=== PATIENT | female | born 1990 | race Asian ===

== ENCOUNTER 2016-06-04 14:40 | Inpatient (IN) | payer MEDICAID ==
[~2016-06-04] VITALS: Ht 162.6 cm; Wt 93.2 kg
[2016-08-06] VITALS (30 sets, daily range): BP systolic 91–136; BP diastolic 50–91; PULSE 80–123; TEMP 97.1–98.4
[2016-08-06] MEDS ORDERED: PRENATAL (07:57)
[2016-08-06 08:40] LABS: BASO % 0.2 % (0.0-2.0); EOS # 0.1 (0.0-0.7); EOS % 1.2 % (0-4.0); GRAN # 6.8 (1.4-6.5); GRAN % 67.8 % (42.2-75.2); HEMATOCRIT 37.3 % (37.0-47.0); HEMOGLOBIN 12.4 g/dl (12.5-16.0); LYMPH # 2.4 (1.2-3.4); LYMPH % 23.7 % (20.0-51.0); MEAN CELL VOLUME 87 fl (80.0-100.0); MEAN CORPUSCULAR HEMOGLOBIN 29 pg (27.0-31.0); MEAN CORPUSCULAR HGB CONC 33 g/dl (33.0-37.0); MEAN PLATELET VOLUME 12.1 fl (7.4-10.4); MONO # 0.6 (0.1-0.6); MONO % 6.3 % (1.7-9.3); PLATELET COUNT 152 K/mm3 (130-400); RED BLOOD COUNT 4.28 M/mm3 (4.10-5.30)
[2016-08-07 00:30] VITALS: BP 130/79; PULSE 98; TEMP 98.3
[2016-08-07 04:30] VITALS: BP 121/79; PULSE 96; TEMP 97.6
[2016-08-07 08:20] VITALS: BP 126/76; PULSE 96; TEMP 97.8
[2016-08-07 16:33] VITALS: BP 141/88; PULSE 78; TEMP 98.2
[2016-08-07 23:05] VITALS: BP 127/82; PULSE 93; TEMP 98.3
[2016-08-08 08:18] VITALS: BP 112/91; PULSE 92; TEMP 98.2
[2016-08-08] MEDS ORDERED: IBU600 MG PO (09:08)
[2016-08-08] MEDS ORDERED: PERCOCET 325 MG1 TA2 PO (09:09)
[2016-08-08] MEDS ORDERED: BREASTPUMP MC ×2 (09:09→09:11)
[2016-10-04] MEDS ORDERED: ZITHROMAX500 M2 PO (00:03)
== END 2016-08-08 14:15 | disposition home or self-care (01) | DRG 775 ==
LOC: LDR 08-06 07:10 → OB 08-06 07:10 → LDR 08-06 14:36 → OB 08-06 15:10 → EDSTATUS 08-16 14:35 → LDRO 08-16 14:39
PROVIDERS: Obstetrics & Gynecology
PROC: 10E0XZZ Delivery of Products of Conception, External Approach (ICD-10-PCS; principal; 2016-08-06)
PROC: 3E033VJ Introduction of Other Hormone into Peripheral Vein, Percutaneous Approach (ICD-10-PCS; 2016-08-06)
PROC: 0HQ9XZZ Repair Perineum Skin, External Approach (ICD-10-PCS; 2016-08-06)
DX: O48.0 Post-term pregnancy (principal); O70.0 First degree perineal laceration during delivery; O69.81X0 Labor and delivery complicated by cord around neck, without compression, not applicable or unspecified; Z3A.40 40 weeks gestation of pregnancy; Z37.0 Single live birth
CPT/HCPCS: J2590; J7120

== ENCOUNTER 2016-10-03 19:09 | Emergency (ER) | payer MEDICAID ==
[~2016-10-03] VITALS: Ht 160 cm; Wt 77.3 kg
[~2016-10-03 19:09] MED LIST: BREASTPUMP MC; IBU600 MG PO; PERCOCET 325 MG1 TA2 PO; PRENATAL
[2016-10-03 19:11] VITALS: TEMP 97.9
[2016-10-03] MEDS ORDERED: CARAFATE 1GM1 G PO (19:15)
[2016-10-03] MEDS ORDERED: ZOLOFT 50MG50 MG PO ×2 (19:16→19:58)
[2016-10-03] MEDS ORDERED: BREASTPUMP MC (19:16)
[2016-10-03 19:47] LABS: BASO % 0.3 % (0.0-2.0); EOS # 0.1 (0.0-0.7); EOS % 1.9 % (0-4.0); GRAN # 4.4 (1.4-6.5); LYMPH # 1.8 (1.2-3.4); LYMPH % 26.9 % (20.0-51.0); MEAN CELL VOLUME 85 fl (80.0-100.0); MEAN CORPUSCULAR HGB CONC 33 g/dl (33.0-37.0); MEAN PLATELET VOLUME 10.8 fl (7.4-10.4); MONO # 0.4 (0.1-0.6); MONO % 5.6 % (1.7-9.3); PLATELET COUNT 244 K/mm3 (130-400); RED BLOOD COUNT 4.14 M/mm3 (4.10-5.30); WHITE BLOOD COUNT 6.8 K/mm3 (4.8-10.8)
[2016-10-03 19:48] LABS: HEMATOCRIT 35.2 % (37.0-47.0); HEMOGLOBIN 11.6 g/dl (12.5-16.0); MEAN CORPUSCULAR HEMOGLOBIN 28 pg (27.0-31.0)
[2016-10-03 20:02] LABS: PH 5 (5-8); URINE APPEARANCE Hazy; URINE BACTERIA None Seen /hpf; URINE BILIRUBIN Negative (NEGATIVE); URINE BLOOD Negative (NEGATIVE); URINE COLOR Yellow; URINE GLUCOSE Negative (NEGATIVE); URINE KETONE Negative (NEGATIVE); URINE RBC 0-2 /hpf; URINE UROBILINOGEN Negative (NEGATIVE)
[2016-10-03 20:05] LABS: ADJUSTED CALCIUM 9.5 mg/dL (8.4-10.2); ALBUMIN 4.5 gm/dL (3.5-5.0); BILIRUBIN,TOTAL 0.5 mg/dL (0.0-1.0); C-REACTIVE PROTEIN 5.9 mg/dL (0.0-0.9); CALCIUM 9.9 mg/dL (8.4-10.2); CREATININE, serum 0.62 mg/dL (0.52-1.25); POTASSIUM 3.7 mmol/L (3.4-5.0); TOTAL PROTEIN 8.7 gm/dL (6.4-8.2)
[2016-10-03 20:44] VITALS: BP 119/71
[2016-10-03] MEDS ORDERED: FLAGYL500 MG PO (21:16)
[2016-10-03] MEDS ORDERED: NORCO 325 MG-51 TAB PO (21:16)
[2016-10-03] MEDS ORDERED: CIPRO 500MG TA500 MG PO (21:16)
[2016-10-03] MEDS ORDERED: ZOFRAN 4MG T4 MG/TAB PO (21:16)
[2016-10-03 21:27] VITALS: PULSE 78
[2016-10-03 23:32] LABS: CHLAMYDIA/TRACH by PCR Female DETECTED; NEISSERIA GON by PCR Female NOT DETECTED
[2016-10-04] MEDS ORDERED: ZITHROMAX500 M2 PO (00:03)
== END 2016-10-03 21:30 | disposition home or self-care (01) ==
LOC: COL.ER 19:09
PROVIDERS: Emergency Medicine
DX: K52.9 Noninfective gastroenteritis and colitis, unspecified (principal); F32.9 Major depressive disorder, single episode, unspecified
CPT/HCPCS: J2270; J2405; J7030; Q9967

== ENCOUNTER 2016-11-24 11:44 | Emergency (ER) | payer MEDICAID ==
[~2016-11-24] VITALS: Ht 160 cm; Wt 78.6 kg
[~2016-11-24 11:44] MED LIST changes: +CARAFATE 1GM1 G PO; +CIPRO 500MG TA500 MG PO; +FLAGYL500 MG PO; +NORCO 325 MG-51 TAB PO; +ZITHROMAX500 M2 PO; +ZOFRAN 4MG T4 MG/TAB PO; +ZOLOFT 50MG50 MG PO
[2016-11-24 11:50] VITALS: PULSE 88; TEMP 987
[2016-11-24] MEDS ORDERED: CIPRO 250MG TA250 MG PO (11:57)
[2016-11-24] MEDS ORDERED: PRIL40 PO (11:59)
[2016-11-24 14:13] LABS: BASO % 0.1 % (0.0-2.0); EOS # 0.1 (0.0-0.7); EOS % 0.7 % (0-4.0); GRAN # 8.5 (1.4-6.5); GRAN % 82.9 % (42.2-75.2); HEMATOCRIT 41.4 % (37.0-47.0); HEMOGLOBIN 13.7 g/dl (12.5-16.0); LYMPH # 1.3 (1.2-3.4); LYMPH % 12.8 % (20.0-51.0); MEAN CELL VOLUME 86 fl (80.0-100.0); MEAN CORPUSCULAR HEMOGLOBIN 29 pg (27.0-31.0); MEAN CORPUSCULAR HGB CONC 33 g/dl (33.0-37.0); MEAN PLATELET VOLUME 10.8 fl (7.4-10.4); MONO # 0.3 (0.1-0.6); MONO % 3.2 % (1.7-9.3); PLATELET COUNT 156 K/mm3 (130-400); RED BLOOD COUNT 4.81 M/mm3 (4.10-5.30); REDCELL DISTRIBUTION WIDTH-CV 13.2 % (11.5-14.5); WHITE BLOOD COUNT 10.2 K/mm3 (4.8-10.8)
[2016-11-24 14:15] LABS: PH 5 (5-8); SQUAMOUS EPITHELIAL 0-2 /hpf; URINE APPEARANCE Clear; URINE BACTERIA None Seen /hpf; URINE BILIRUBIN Negative (NEGATIVE); URINE BLOOD 1+ (NEGATIVE); URINE COLOR Yellow; URINE GLUCOSE Negative (NEGATIVE); URINE KETONE Negative (NEGATIVE); URINE RBC 0-2 /hpf; URINE UROBILINOGEN Negative (NEGATIVE); URINE WBC 0-2 /hpf
[2016-11-24 14:30] LABS: ADJUSTED CALCIUM 9.1 mg/dL (8.4-10.2); ALBUMIN 5.1 gm/dL (3.5-5.0); BILIRUBIN,TOTAL 0.7 mg/dL (0.0-1.0); CREATININE, serum 0.67 mg/dL (0.52-1.25); POTASSIUM 3.8 mmol/L (3.4-5.0); TOTAL PROTEIN 9.1 gm/dL (6.4-8.2)
[2016-11-24] MEDS ORDERED: NORCO 325 MG-51 TAB PO (16:04)
[2016-11-24] MEDS ORDERED: PHENERGAN 25 TA25 MG PO (16:04)
[2016-11-24 16:47] VITALS: BP 125/81
== END 2016-11-24 16:47 | disposition home or self-care (01) ==
LOC: COL.ER 11:44
PROVIDERS: Physician Assistant
DX: R10.11 Right upper quadrant pain (principal); K21.9 Gastro-esophageal reflux disease without esophagitis; Z32.02 Encounter for pregnancy test, result negative; Z87.19 Personal history of other diseases of the digestive system
CPT/HCPCS: J1170; J2405; J2550; J7030; Q9967

== ENCOUNTER 2019-05-23 10:47 | Emergency (ER) | payer MEDICAID ==
[~2019-05-23] VITALS: Ht 160 cm; Wt 77.3 kg
[~2019-05-23 10:47] MED LIST changes: +CIPRO 250MG TA250 MG PO; +PHENERGAN 25 TA25 MG PO; +PRIL40 PO
[2019-05-23 11:23] VITALS: TEMP 98.4
[2019-05-23] MEDS ORDERED: ZOFRAN ODT4 MG PO (15:03)
[2019-05-23] MEDS ORDERED: FLEXERIL 1010 MG/TAB PO (15:03)
[2019-05-23] MEDS ORDERED: ZITHROMAX Z PA250 MG PO (15:08)
[2019-05-23 15:25] VITALS: BP 127/80; PULSE 88
== END 2019-05-23 15:27 | disposition home or self-care (01) ==
LOC: COL.ER 10:47
DX: J20.9 Acute bronchitis, unspecified (principal); S16.1XXA Strain of muscle, fascia and tendon at neck level, initial encounter; F07.81 Postconcussional syndrome; W19.XXXA Unspecified fall, initial encounter; W22.8XXA Striking against or struck by other objects, initial encounter
CPT/HCPCS: J1885

== ENCOUNTER → 2019-08-31 | Outpatient (CLI) | payer MEDICAID ==
[~2019-08-31] MED LIST changes: +FLEXERIL 1010 MG/TAB PO; +ZITHROMAX Z PA250 MG PO; +ZOFRAN ODT4 MG PO
== END ==
LOC: MHCPAIN 10:01
DX: M47.817 Spondylosis without myelopathy or radiculopathy, lumbosacral region (principal); M54.5 Low back pain; M53.3 Sacrococcygeal disorders, not elsewhere classified; G89.29 Other chronic pain; F17.210 Nicotine dependence, cigarettes, uncomplicated
CPT/HCPCS: G0463